=== PATIENT | female | born 1950 | race Caucasian/White ===

== ENCOUNTER 2021-11-01 08:19 | Day surgery (SDC) | payer MEDICARE, BC ==
[2021-10-27 15:51] LABS: BASOPHILS % (AUTO) 0.5 % (0-1); EOSINOPHILS # (AUTO) 0.3 X10'3 (0-0.9); EOSINOPHILS % (AUTO) 4.6 % (0-6); LYMPHOCYTES # (AUTO) 1.5 X10'3 (1.1-4.8); LYMPHOCYTES % (AUTO) 23.8 % (21-51); MEAN CORPUSCULAR HEMOGLOBIN 32.4 PG (27.0-31.0); MEAN CORPUSCULAR HGB CONC 33.5 g/dL (33.0-36.5); MEAN CORPUSCULAR VOLUME 96.7 FL (78-98); MEAN PLATELET VOLUME 7.6 FL (7.4-10.4); MONOCYTES # (AUTO) 0.5 X10'3 (0-0.9); MONOCYTES % (AUTO) 8.3 % (2-12); NEUTROPHILS # (AUTO) 4.1 X10'3 (1.8-7.7); NEUTROPHILS % (AUTO) 62.8 % (42-75); PRE OP HEMATOCRIT 39.5 % (35.0-45.0); PRE OP HEMOGLOBIN 13.2 g/dL (12.0-16.0); PRE OP PLATELET COUNT 265 X10'3 (140-440); RED BLOOD COUNT 4.08 X10'6 (4.20-5.60); RED CELL DISTRIBUTION WIDTH 13.1 % (11.5-14.5)
[2021-10-27 16:10] LABS: ALBUMIN 4.1 G/DL (3.4-5.0); ALBUMIN/GLOBULIN RATIO 1.2 (1.1-1.5); ALKALINE PHOSPHATASE 60 IU/L (46-116); BLOOD UREA NITROGEN 21 MG/DL (7-18); BUN/CREATININE RATIO 30.9 (6.6-38.0); CHLORIDE 101 MMOL/L (99-107); CREATININE 0.68 MG/DL (0.40-0.90); PRE OP ALT 38 U/L (30-65); PRE OP ANION GAP 10 (8-16); PRE OP AST 27 U/L (10-37); PRE OP BILIRUB, TOTAL 0.4 MG/DL (0.0-1.0); PRE OP GLUCOSE 110 MG/DL (70-104); PRE OP POTASSIUM 3.9 MMOL/L (3.4-5.1); PRE OP SODIUM 137 MMOL/L (135-145); TOTAL CARBON DIOXIDE 26.4 MMOL/L (24-32); TOTAL PROTEIN 7.4 G/DL (6.4-8.2); eGFR 86 ML/MIN
[~2021-11-01] VITALS: Ht 170.2 cm; Wt 72.9 kg
[~2021-11-01 08:19] MED LIST: ATOR10TA70 PO; AZEL23SP2 BOTHNARES; BUPIVAcaine/PF 2.5mg/ml (0.25%) 10ml vial ONE; CELE-85 PO; CETI-194 PO; DULO60CA65 PO; ESTR1VAG VG; GABA-530 PO; TELM40TA8 PO; VITAMIN C; VITAMIN D; [UNRECOGNIZED DRUG - CODE] TOP; [UNRECOGNIZED DRUG - OTHER]; ceFAZolin inj. 2,000 MG in dextrose 5%-water 100 ML IV ONE; famotidine 20mg tablet PO ONE; ringers solution, lacted 1,000 ML IV SCH
[2021-11-01 08:30] VITALS: BP 133/72
[2021-11-01] MEDS ORDERED: LIDOcaine 0.5% (5mg/ml) 50ml vial ONE (09:35)
[2021-11-01] MEDS ORDERED: dextrose 50%-water 50ml dispensing syringe IV ONE ×2 (10:10)
[2021-11-01 12:00] VITALS: BP 133/72
[2021-11-01] MEDS ORDERED: fentaNYL/PF 50MCG/1 ML 2ML syringe ONE ×2 (12:20→13:00)
[2021-11-01] MEDS ORDERED: midazolam 1 mg/ML 2ml injection ONE ×2 (12:20→12:43)
[2021-11-01] MEDS ORDERED: ondansetron/PF 4mg/2ml inj IV PRN (12:40)
[2021-11-01] MEDS ORDERED: ringers solution, lacted 1,000 ML IV SCH (12:40)
[2021-11-01] MEDS ORDERED: proCHLORperazine 10 MG/2 ml inj IV PRN (12:40)
[2021-11-01] MEDS ORDERED: meperidine/PF 25mg/ml syringe IV PRN ×3 (12:40)
[2021-11-01] MEDS ORDERED: morphine 2 MG/ML inj. syringe IV PRN (12:40)
[2021-11-01] MEDS ORDERED: morphine 4 MG/ML inj SYRINge IV PRN (12:40)
[2021-11-01] MEDS ORDERED: BUPIVAcaine/PF 2.5mg/ml (0.25%) 10ml vial ONE (12:44)
[2021-11-01] MEDS ORDERED: diphenhydrAMINE 50 mg/ml inj ONE (13:00)
[2021-11-01] MEDS ORDERED: propofol inj 20 ML IV ONE (13:00)
[2021-11-01 13:10] VITALS: BP 132/75
--- NOTE | 2021-11-01 13:10 | NUR ---
Received from OR via [facility], accompanied by Anesthesiologist and report given by Anesthesiolgist. DENIES PAIN. LEFT DRESSING TO WRIST CDI, CSM INTACT. RIGHT HAND 20G PIV WITH LR RUNNING AT 100ML/HR. VS WNL'S. ALERT AND ORIENTED. BELONGINGS PLACED AT BEDSIDE.
[2021-11-01 13:20] VITALS: BP 130/84
[2021-11-01] MEDS ORDERED: triamcinolone acetonide 40mg/ml inj ONE (13:25)
[2021-11-01 13:30] VITALS: BP 137/72
[2021-11-01 13:40] VITALS: BP 115/65
--- NOTE | 2021-11-01 13:40 | NUR ---
PATIENT MEETS DISCHARGE CRITERIA. SENT HOME WITH ALL BELONGINGS WITH , JUVENAL. DENIES PAIN. VS WNL'S. IV REMOVED. UNDERSTANDS DISCHARGE INSTRUCTIONS.
== END 2021-11-01 13:40 | disposition home or self-care (01) ==
LOC: PAS 08:19
PROVIDERS: ATTEND Orthopaedic Surgery Hand Surgery
DX: M18.12 Unilateral primary osteoarthritis of first carpometacarpal joint, left hand (principal); M72.0 Palmar fascial fibromatosis [Dupuytren]; Z79.899 Other long term (current) drug therapy; Z98.890 Other specified postprocedural states; Z91.040 Latex allergy status; E78.5 Hyperlipidemia, unspecified; F41.9 Anxiety disorder, unspecified; Z85.3 Personal history of malignant neoplasm of breast; Z85.828 Personal history of other malignant neoplasm of skin
CPT/HCPCS: 25447; 26483; 36415; 80053; 82948; 85025; 87811; 93005; J0690; J1200; J2250; J2704; J3010; J3301; J3490; J7030; J7060; J7120; Z7506; Z7512; A4215; A4615; A7000

== ENCOUNTER 2022-06-06 15:15 | Outpatient (CLI) | payer MEDICARE, BC ==
[~2022-06-06 15:15] MED LIST changes: -BUPIVAcaine/PF 2.5mg/ml (0.25%) 10ml vial ONE; -VITAMIN C; +VITAMIN C PO; -VITAMIN D; +VITAMIN D PO; -[UNRECOGNIZED DRUG - OTHER]; +[UNRECOGNIZED DRUG - OTHER] PO; -ceFAZolin inj. 2,000 MG in dextrose 5%-water 100 ML IV ONE; -famotidine 20mg tablet PO ONE; -ringers solution, lacted 1,000 ML IV SCH
[2022-06-06 16:16] LABS: CLARITY,URINE SLIGHTLY CLOUDY (Clear); COLOR,URINE YELLOW (Yellow); GLUCOSE, URINE NEGATIVE (Neg); KETONES,URINE NEGATIVE (Neg); LEUKOCYTE ESTERASE ,URINE NEGATIVE (Neg); NITRITES, URINE NEGATIVE (Neg); OCCULT BLOOD,URINE NEGATIVE (Neg); PH,URINE 7.5 (4.8-8.0); PROTEIN,URINE NEGATIVE (Neg); UROBILINOGEN,URINE 0.2 E.U/dL (0.2-1.0)
[2022-06-06 16:17] LABS: UA COLLECTION TYPE VOIDED
[2022-06-06 16:21] LABS: BASOPHILS % (AUTO) 0.6 % (0-1); EOSINOPHILS # (AUTO) 0.2 X10'3 (0-0.9); EOSINOPHILS % (AUTO) 2.7 % (0-6); LYMPHOCYTES # (AUTO) 1.8 X10'3 (1.1-4.8); MEAN CORPUSCULAR HEMOGLOBIN 32.8 PG (27.0-31.0); MEAN CORPUSCULAR HGB CONC 33.1 g/dL (33.0-36.5); MEAN PLATELET VOLUME 7.5 FL (7.4-10.4); MONOCYTES # (AUTO) 0.6 X10'3 (0-0.9); MONOCYTES % (AUTO) 8.2 % (2-12); NEUTROPHILS # (AUTO) 4.9 X10'3 (1.8-7.7); NEUTROPHILS % (AUTO) 64.5 % (42-75); PRE OP HEMATOCRIT 42.2 % (35.0-45.0); PRE OP PLATELET COUNT 332 X10'3 (140-440); RED BLOOD COUNT 4.27 X10'6 (4.20-5.60); RED CELL DISTRIBUTION WIDTH 13.1 % (11.5-14.5)
[2022-06-06 16:22] LABS: RBC,URINE NONE SEEN /HPF (0-2); SQUAMOUS EPITHELIAL CELL,UR MANY /LPF (FEW)
[2022-06-06 16:24] LABS: BACTERIA,URINE 1+ /HPF (Neg)
[2022-06-06 16:25] LABS: HYALINE CASTS 0-3 /LPF (NEGATIVE); MUCUS STRANDS FEW /LPF (Neg); TRANSITIONAL EPI CELLS,URINE FEW /HPF
[2022-06-06 16:28] LABS: PRE OP PROTIME 9.9 SECONDS (9.0-12.0)
[2022-06-06 16:30] LABS: PRE OP INR 0.9 INR
[2022-06-06 16:32] LABS: ALBUMIN 4.2 G/DL (3.4-5.0); ALBUMIN/GLOBULIN RATIO 1.2 (1.1-1.5); ALKALINE PHOSPHATASE 63 IU/L (46-116); BLOOD UREA NITROGEN 14 MG/DL (7-18); BUN/CREATININE RATIO 18.4 (10.0-20.0); CALCIUM 9.2 MG/DL (8.5-10.1); CHLORIDE 98 MMOL/L (99-107); CREATININE 0.76 MG/DL (0.40-0.90); PRE OP ALT 38 U/L (30-65); PRE OP ANION GAP 9 (8-16); PRE OP AST 29 U/L (10-37); PRE OP BILIRUB, TOTAL 0.5 MG/DL (0.0-1.0); PRE OP GLUCOSE 106 MG/DL (70-104); PRE OP POTASSIUM 3.6 MMOL/L (3.4-5.1); PRE OP SODIUM 135 MMOL/L (135-145); TOTAL CARBON DIOXIDE 28.2 MMOL/L (24-32); TOTAL PROTEIN 7.8 G/DL (6.4-8.2); eGFR 75 ML/MIN
[2022-06-07 11:38] LABS: CLARITY,URINE SLIGHTLY CLOUDY (Clear); COLOR,URINE YELLOW (Yellow); GLUCOSE, URINE NEGATIVE (Neg); KETONES,URINE NEGATIVE (Neg); LEUKOCYTE ESTERASE ,URINE NEGATIVE (Neg); NITRITES, URINE NEGATIVE (Neg); OCCULT BLOOD,URINE NEGATIVE (Neg); PH,URINE 6.5 (4.8-8.0); PROTEIN,URINE NEGATIVE (Neg); UROBILINOGEN,URINE 0.2 E.U/dL (0.2-1.0)
[2022-06-07 11:47] LABS: UA COLLECTION TYPE CLN CATCH MIDSTREAM
[2022-06-07 11:49] LABS: RBC,URINE NONE SEEN /HPF (0-2); SQUAMOUS EPITHELIAL CELL,UR FEW /LPF (FEW); WBC,URINE 0-4 /HPF (0-4)
[2022-06-07 11:50] LABS: BACTERIA,URINE NONE SEEN /HPF (Neg)
== END 2022-06-06 23:59 | disposition home or self-care (01) ==
LOC: LAB 15:15 → EDSTATUS 06-14 07:30
PROVIDERS: ATTEND Specialist
DX: M25.512 Pain in left shoulder (principal); M19.012 Primary osteoarthritis, left shoulder; M75.112 Incomplete rotator cuff tear or rupture of left shoulder, not specified as traumatic; I82.409 Acute embolism and thrombosis of unspecified deep veins of unspecified lower extremity
CPT/HCPCS: 36415; 71046; 80053; 81001; 85025; 85610; 85730; 86885; 86900; 86901; 87081

== ENCOUNTER 2024-03-19 06:14 | Outpatient (CLI) | payer MEDICARE, OTHER ==
[~2024-03-19 06:14] MED LIST changes: -AZEL23SP2 BOTHNARES; +CELE-127 PO; -CELE-85 PO; -ESTR1VAG VG; +ESTR1VAG10 VG; -[UNRECOGNIZED DRUG - CODE] TOP
== END 2024-03-19 23:59 | disposition home or self-care (01) ==
LOC: MRI02 06:14
PROVIDERS: ATTEND Pediatrics Sports Medicine
DX: M47.816 Spondylosis without myelopathy or radiculopathy, lumbar region (principal); M48.061 Spinal stenosis, lumbar region without neurogenic claudication; M51.370 Other intervertebral disc degeneration, lumbosacral region with discogenic back pain only; M40.46 Postural lordosis, lumbar region; M25.78 Osteophyte, vertebrae
CPT/HCPCS: 72148